=== PATIENT | female | born 1950 | race Two or more races ===

== ENCOUNTER 2019-01-31 10:28 | Outpatient (CLI) | payer OTHER ==
[2019-02-13] MEDS ORDERED: KOMBIGLYZE XR1 EACH PO (15:13)
[2019-02-13] MEDS ORDERED: GLUMETZA500 MG PO (15:13)
[2019-02-13] MEDS ORDERED: PREVACID30 M1 PO (15:14)
[2019-02-13] MEDS ORDERED: SYNTHROID50 MCG PO (15:14)
[2019-02-13] MEDS ORDERED: CLONAZEPAM0.5 MG PO (15:14)
[2019-02-13] MEDS ORDERED: COZAAR50 MG PO (15:14)
[2019-02-13] MEDS ORDERED: VITAMIN D-32000 UNIT PO (15:15)
[2019-02-13] MEDS ORDERED: VITAMIN C500 M6 PO (15:16)
== END 2019-01-31 10:30 | disposition home or self-care (01) ==
LOC: EKG 10:28
DX: K42.9 Umbilical hernia without obstruction or gangrene (principal); Z01.810 Encounter for preprocedural cardiovascular examination